=== PATIENT | female | born 2000 | race Caucasian/White ===

== ENCOUNTER → 2022-11-30 | Outpatient (CLI) | payer BC ==
--- NOTE | 2022-11-30 13:43 | Diagnostic Imaging Report ---
INDICATION: Back pain. FINDINGS: Frontal and lateral lumbar spine film showed leftward convexity rotoscoliotic curvature with no lateral or sagittal listhesis. Vertebral statures themselves are normal. No radiographic apparent segmentation anomaly or dysraphism. No fracture. IMPRESSION: Leftward convexity lumbar rotoscoliotic curvature with normal lumbar lordosis. No listhesis, fracture, or acute-appearing abnormalities. Dictated by: Dictated on workstation # [id number]
--- NOTE | 2022-11-30 13:44 | Diagnostic Imaging Report ---
Indication: Back pain. Findings: There is reciprocal S type thoracolumbar scoliotic curvature convex to the right at the mid to upper T-spine and the left at the thoracolumbar junction where there is a rotary component. No lateral or anteroposterior listhesis. Thoracic vertebral statures are within normal limits. No segmentation anomaly or dysraphism is apparent. There is about 22 degree rightward convexity curvature as measured through the C6 superior endplate through the T10 inferior endplate and about 26 degrees leftward convexity curvature as measured from the T11 superior endplate through the L2 superior endplate. 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 Dictated by: Dictated on workstation # [id number]
== END ==
LOC: RAD 13:09
PROVIDERS: ATTEND Chiropractor
DX: M54.50 Low back pain, unspecified (principal); M41.25 Other idiopathic scoliosis, thoracolumbar region
CPT/HCPCS: 72070; 72100